=== PATIENT | male | born 1950 | race Caucasian/White ===

== ENCOUNTER → 2017-11-30 | Outpatient (CLI) | payer OTHER | END | disposition home or self-care (01) | LOC: KCIC CT 12:50 | DX: S62.114D Nondisplaced fracture of triquetrum [cuneiform] bone, right wrist, subsequent encounter for fracture with routine healing (principal); M85.641 Other cyst of bone, right hand; X58.XXXD Exposure to other specified factors, subsequent encounter | CPT/HCPCS: 73200 ==